=== PATIENT | female | born 1965 | race Caucasian/White ===

== ENCOUNTER → 2020-01-16 | Outpatient (CLI) | payer BC, OTHER ==
[~2020-01-16] MED LIST: GLUCOPHAGE XR750 MG PO; LANTUS SOL100 UNIT/1 SQ; LEVOXYL175 MCG PO; VICTOZA0.6 MG/0.1 SUBQ; ZOCOR40 MG PO
== END ==
LOC: BC 14:56
PROVIDERS: ATTEND Internal Medicine
DX: Z12.31 Encounter for screening mammogram for malignant neoplasm of breast (principal)